=== PATIENT | female | born 1945 | race Caucasian/White ===

== ENCOUNTER 2020-06-17 15:53 | Outpatient (CLI) | payer OTHER, MEDICARE ==
[~2020-06-17] VITALS: Ht 160 cm; Wt 70.5 kg
[2020-06-17] MEDS ORDERED: NS IV 1000 ML 1,000 ML ONE (16:25)
[2020-06-17 16:30] VITALS: BP 118/69
[2020-06-17 16:44] LABS: CLARITY,URINE CLOUDY; COLOR,URINE YELLOW; GLUCOSE, URINE (UA) NEGATIVE (NEGATIVE); KETONES,URINE 1+ (NEGATIVE); LEUKOCYTE ESTERASE ,URINE TRACE (NEGATIVE); NITRITE,URINE NEGATIVE (NEGATIVE); PH,URINE 5.5 (5-9); PROTEIN,URINE 1+ (NEGATIVE)
[2020-06-17] MEDS ORDERED: NS IV 1000 ML 1,000 ML IV ONE (16:45)
[2020-06-17 16:47] LABS: BASOPHILS % (AUTO) 0 % (0-10); EOSINOPHILS # (AUTO) 0.1 10^3/uL (0.0-0.3); EOSINOPHILS % (AUTO) 1 % (0-10); HEMATOCRIT 37 % (35-52); HEMOGLOBIN 12.4 G/DL (11.5-16.0); LYMPHOCYTES # (AUTO) 1.5 X 10^3 (1.0-4.0); LYMPHOCYTES % (AUTO) 24 % (12-44); MEAN CORPUSCULAR HEMOGLOBIN 26 PG (25-34); MEAN CORPUSCULAR HGB CONC 34 G/DL (32-36); MEAN CORPUSCULAR VOLUME 78 FL (80-99); MONOCYTES # (AUTO) 0.8 X 10^3 (0.0-1.0); MONOCYTES % (AUTO) 13 % (0-12); NEUTROPHILS # (AUTO) 3.9 X 10^3 (1.8-7.8); NEUTROPHILS % (AUTO) 62 % (42-75); PLATELET COUNT 363 10^3/uL (130-400); RED CELL DISTRIBUTION WIDTH 14.4 % (10.0-14.5); WHITE BLOOD COUNT 6.3 10^3/uL (4.3-11.0)
[2020-06-17 16:49] LABS: BILIRUBIN,URINE 2+ (NEGATIVE)
[2020-06-17 16:51] LABS: BACTERIA,URINE LARGE /HPF; SQUAMOUS EPITHELIAL CELL,UR 25-50 /HPF
[2020-06-17 17:01] LABS: ALBUMIN 3.8 GM/DL (3.2-4.5); BILIRUBIN,TOTAL 0.3 MG/DL (0.1-1.0); CALCIUM 9.7 MG/DL (8.5-10.1); CREATININE SERUM 1.64 MG/DL (0.60-1.30); POTASSIUM 3.6 MMOL/L (3.6-5.0); TOTAL PROTEIN 7.5 GM/DL (6.4-8.2)
== END 2020-06-17 17:31 | disposition home or self-care (01) ==
LOC: SDC 15:53
PROVIDERS: ATTEND Nurse Practitioner Family
DX: E86.0 Dehydration (principal); R11.2 Nausea with vomiting, unspecified
CPT/HCPCS: 36415; 80053; 81000; 85025; 96365

== ENCOUNTER 2021-05-12 23:20 | Emergency (ER) | payer OTHER, MEDICARE ==
[~2021-05-12] VITALS: Ht 160 cm; Wt 52.0 kg
[2021-05-13 00:06] LABS: BASOPHILS % (AUTO) 1 % (0-10); EOSINOPHILS # (AUTO) 0.1 10^3/uL (0.0-0.3); EOSINOPHILS % (AUTO) 2 % (0-10); HEMATOCRIT 32 % (35-52); HEMOGLOBIN 10.1 g/dL (11.5-16.0); LYMPHOCYTES # (AUTO) 1.1 10^3/uL (1.0-4.0); LYMPHOCYTES % (AUTO) 30 % (12-44); MEAN CORPUSCULAR HEMOGLOBIN 27 pg (25-34); MEAN CORPUSCULAR HGB CONC 32 g/dL (32-36); MEAN CORPUSCULAR VOLUME 84 fL (80-99); MEAN PLATELET VOLUME 11.9 fL (9.0-12.2); MONOCYTES # (AUTO) 0.6 10^3/uL (0.0-1.0); MONOCYTES % (AUTO) 15 % (0-12); NEUTROPHILS # (AUTO) 1.9 10^3/uL (1.8-7.8); NEUTROPHILS % (AUTO) 53 % (42-75); PLATELET COUNT 181 10^3/uL (130-400); WHITE BLOOD COUNT 3.7 10^3/uL (4.3-11.0)
[2021-05-13 00:30] LABS: CREATININE SERUM 1.95 MG/DL (0.60-1.30); POTASSIUM 4.7 MMOL/L (3.6-5.0)
[2021-05-13 00:39] LABS: INR 2.7 (0.8-1.4); PROTHROMBIN TIME PATIENT 29.3 SEC (12.2-14.7)
--- NOTE | 2021-05-13 01:34 | ED Syncope ---
General Chief Complaint: Dizziness/Syncope Stated Complaint: SYNCOPE,WEAKNESS Nursing Triage Note: PT ARRIVES BY [facility] WITH C/O SYNCOPAL EPISODE AT HOME AROUND 2129. PT DOESNT COMPLETELY REMEMBER WHAT HAPPENED BUT HELPED HER TO THE FLOOR. PT WAS AWAKE AND A/OX4 ON ARRIVAL TO [facility]. PT HAS BEEN WEAK LATELY AND HAS SEEN PCP History of Present Illness Date Seen by Provider: May 12, 2021 Time Seen by Provider: 23:45 Initial Comments Patient is a 75-year-old female who presents to the emergency room after a syncopal episode around 930 this evening. Patient states that she was getting a glass out of a kitchen cabinet and realized that she was feeling a little nauseous and lightheaded. Patient states she called for her who came to her assistance and helped her to the floor. Patient states she believes she had a complete syncopal event. She states she also had some pain across her shoulder blades just prior to this event. She denies any actual chest pain or shortness of breath. She was nauseous. She has never had an event like this before. Just prior to this patient had showered after working out on their deck most of the evening. Patient states that she had had dinner. She did not vomit. She has had no recent illnesses. She has had a slight cough. She is not concerned about any Covid exposures. She has seen her primary care physician for weakness ongoing over the course of the last couple of weeks. At the time of presentation the patient's pain across her shoulder blades is completely resolved. She feels back to almost normal but somewhat fatigued. All other review of systems reviewed and negative except as stated above. Timing/Prior Episodes: No Prior History Symptoms Prior to Episode: Diaphoresis Precipitating Factors: Activity Loss of Consciousness: Brief (Seconds) Current Symptoms: Back to Normal Allergies and Home Medications Allergies Coded Allergies: carisoprodol (Verified Allergy, Unknown, 06/17/20) hydrocodone (Verified Allergy, Unknown, 06/17/20) tramadol (Verified Allergy, Unknown, 06/17/20) Patient Home Medication List Home Medication List Reviewed: Yes Review of Systems Constitutional: see HPI, diaphoresis EENTM: no symptoms reported Respiratory: cough Cardiovascular: no symptoms reported Gastrointestinal: nausea Genitourinary: no symptoms reported Musculoskeletal: no symptoms reported Skin: no symptoms reported All Other Systems Reviewed Negative Unless Noted: Yes Past Ekfpbcv-Nnmu[place]-Atgkit Hx Patient Social History Tobacco Use?: No Use of E-Cig and/or Vaping dev: No Use of E-Cig and/or Vaping [place]: Never a User Alcohol Use?: No Pt feels they are or have been: No Immunizations Up To Date Influenza Vaccine Up-to-Date: No; Not Current Physical Exam Vital Signs Vital Signs - First Documented 05/12/21 23:20 Temp 36.1 Pulse 59 Resp 18 B/P (MAP) 126/56 (79) Capillary Refill : Less Than 3 Seconds Height, Weight, BMI Height: '" Weight: lbs. oz. 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 Norm as Tested Cranial Nerves: Normal Hearing, Normal Speech, PERRL Motor/Sensory: No Motor Deficit, No Sensory Deficit Skin: Normal Color, Warm/Dry Progress/Results/Core Measures Results/Orders Lab Results Laboratory Tests Test 05/12/21 23:30 05/13/21 00:00 Range/Units White Blood Count 3.7 L 4.3-11.0 10^3/uL Red Blood Count 3.78 L 3.80-5.11 10^6/uL Hemoglobin 10.1 L 11.5-16.0 g/dL Hematocrit 32 L 35-52 % Mean Corpuscular Volume 84 80-99 fL Mean Corpuscular Hemoglobin 27 25-34 pg Mean Corpuscular Hemoglobin Concent 32 32-36 g/dL Red Cell Distribution Width 14.6 H 10.0-14.5 % Platelet Count 181 130-400 10^3/uL Mean Platelet Volume 11.9 9.0-12.2 fL Immature Granulocyte % (Auto) 0 % Neutrophils (%) (Auto) 53 42-75 % Lymphocytes (%) (Auto) 30 12-44 % Monocytes (%) (Auto) 15 H 0-12 % Eosinophils (%) (Auto) 2 0-10 % Basophils (%) (Auto) 1 0-10 % Neutrophils # (Auto) 1.9 1.8-7.8 10^3/uL Lymphocytes # (Auto) 1.1 1.0-4.0 10^3/uL Monocytes # (Auto) 0.6 0.0-1.0 10^3/uL Eosinophils # (Auto) 0.1 0.0-0.3 10^3/uL Basophils # (Auto) 0.0 0.0-0.1 10^3/uL Immature Granulocyte # (Auto) 0.0 0.0-0.1 10^3/uL Prothrombin Time 29.3 H 12.2-14.7 SEC INR Comment 2.7 H 0.8-1.4 Sodium Level 137 135-145 MMOL/L Potassium Level 4.7 3.6-5.0 MMOL/L Chloride Level 114 H 98-107 MMOL/L Carbon Dioxide Level 15 L 21-32 MMOL/L Anion Gap 8 5-14 MMOL/L Blood Urea Nitrogen 27 H 7-18 MG/DL Creatinine 1.95 H 0.60-1.30 MG/DL Estimat Glomerular Filtration Rate 25 BUN/Creatinine Ratio 14 Glucose Level 105 70-105 MG/DL Calcium Level 7.0 L 8.5-10.1 MG/DL Total Creatine Kinase 59 29-168 U/L Creatine Kinase MB 2.5 <6.6 NG/ML Troponin I < 0.028 <0.028 NG/ML My Orders Orders - LISA TEMPLETON MD Ed Iv/Invasive Line Start (05/12/21 23:49) Cbc With Automated Diff (05/12/21 23:49) Basic Metabolic Panel (05/12/21 23:49) Ekg Tracing (05/12/21 23:49) Protime With Inr (05/12/21 23:49) Chest 1 View, Ap/Pa Only (05/13/21 ) Creatine Kinase (05/13/21 01:40) Creatine Kinase Mb (05/13/21 01:40) Troponin I (05/13/21 01:40) Vital Signs/I&O 05/12/21 23:20 Temp 36.1 Pulse 59 Resp 18 B/P (MAP) 126/56 (79) 7/1/21 23:59 Intake Total 500 ml Balance 500 ml Blood Pressure Mean: 79 Progress Progress Note : Time: 01:42 Progress Note Patient reevaluated, continues to rest without complaints. Labs have been reviewed, she has a slightly decreased white count and hemoglobin at 10. Her white count is 3.7. She has mildly depressed renal function which has been chronic according to previous laboratory studies in June 2020. Patient has follow-up with her primary care physician, Dr. Grider. I will go ahead and send off a CK and troponin this will have been a 4-hour troponin from the event at 930. Pending this is in the normal range we will send the patient home to follow-up with Dr. Grider. Patient is agreeable with this plan. All questions are sought and answered. Initial ECG Impression Date: May 12, 2021 Initial ECG Impression Time: 23:29 Initial ECG Rate: 57 Initial ECG Rhythm: Normal Sinus Initial ECG Intervals: Normal Initial ECG Impression: Normal Departure Impression Primary Impression: Syncope Disposition: 01 HOME, SELF-CARE Condition: Stable Departure-Patient Inst. Decision time for Depature: 02:18 Referrals: JONO GRIDER MD (PCP/Family) Primary Care Physician Patient Instructions: Syncope (Fainting) (DC) Add. Discharge Instructions: Continue your routine home daily medications. Please call and follow-up with your primary care physician. Return to the emergency room for any repeat episodes of passing out, chest or back pain or new concerning or emergent symptoms. Copy Copies To 1: JONO GRIDER MD, KATHRYN M MD May 13, 2021 01:34
[2021-05-13 01:56] LABS: CREATINE KINASE 59 U/L (29-168)
[2021-05-13 02:02] LABS: CREATINE KINASE MB 2.5 NG/ML (<6.6)
[2021-05-13 02:20] VITALS: BP 127/55
--- NOTE | 2021-05-13 07:23 | Diagnostic Imaging Report ---
INDICATION: Syncope COMPARISON: 06/13/2020 TECHNIQUE: Single radiograph chest dated 05/13/2021. FINDINGS: The cardiac silhouette is within normal limits in size. No significant pulmonary vascular congestion. Moderate-sized round gas and fluid collection within the retrocardiac region is again identified. The lungs otherwise appear clear. No significant pleural effusion. No pneumothorax. No acute osseous abnormality. IMPRESSION: No acute cardiopulmonary abnormality with moderate-sized hiatal hernia present. Dictated by: Dictated on workstation # [id number]
== END 2021-05-13 02:20 | disposition home or self-care (01) ==
LOC: EDUNIT# 23:20 → ER 23:22
DX: R55 Syncope and collapse (principal)
CPT/HCPCS: 36415; 71045; 80048; 82550; 82553; 84484; 85025; 85610; 93005

== ENCOUNTER → 2021-07-04 | Outpatient (CLI) | payer MEDICARE, OTHER | LOC: CARD 12:00 | PROVIDERS: ATTEND Nurse Practitioner Family | DX: I08.0 Rheumatic disorders of both mitral and aortic valves (principal); I10 Essential (primary) hypertension | CPT/HCPCS: 93306 ==

== ENCOUNTER 2021-08-25 09:00 | Outpatient (RCR) | payer MEDICARE, OTHER | END 2021-11-11 | disposition home or self-care (01) | LOC: CARD 09:00 | PROVIDERS: ATTEND Internal Medicine Cardiovascular Disease | DX: I49.9 Cardiac arrhythmia, unspecified (principal); R00.2 Palpitations ==

== ENCOUNTER → 2021-09-15 | Outpatient (CLI) | payer MEDICARE, OTHER ==
--- NOTE | 2021-09-15 13:21 | Diagnostic Imaging Report ---
INDICATION: Pain and swelling COMPARISON: None. FINDINGS: 3 views of the right foot demonstrate no acute fracture or dislocation. There are no focal osseous lesions. There is moderate localized soft tissue swelling involving the dorsum overlying the metatarsals. Joint spaces are well maintained. No radiopaque foreign bodies are seen. IMPRESSION: Moderate soft tissue swelling, but no radiographic evidence of acute fracture or dislocation of the right foot. Dictated by: Dictated on workstation # [id number]
== END ==
LOC: RAD 12:45
PROVIDERS: ATTEND Nurse Practitioner Family
DX: M79.671 Pain in right foot (principal); M79.89 Other specified soft tissue disorders
CPT/HCPCS: 73630

== ENCOUNTER → 2022-02-22 | Outpatient (CLI) | payer MEDICARE, OTHER ==
--- NOTE | 2022-02-22 15:39 | Diagnostic Imaging Report ---
PROCEDURE: US Thyroid. TECHNIQUE: Multiple real-time grayscale images were obtained of the thyroid in various projections. INDICATION: Hyperthyroidism. No prior studies are available for comparison. Right lobe of thyroid measures 4.1 x 1.6 x 1.9 cm, left lobe measures 4.4 x 1.2 x 1.5 cm. Isthmus is 3 mm in thickness. There appears to be a tiny cyst in the upper pole right lobe of thyroid approximately 3 to 4 mm in size. Hypoechoic circumscribed solid appearing nodule in the mid right lobe measures approximately 5 mm x 4 mm. Left lobe demonstrates fairly homogeneous echotexture. There is a nodule in the left aspect of the isthmus measuring 9 mm x 9 mm x 5 mm. No microcalcifications are seen. No dominant thyroid mass is detected. IMPRESSION: Bilateral thyroid nodules, subcentimeter in size. No dominant thyroid masses detected. Dictated by: Dictated on workstation # [id number]
== END ==
LOC: RAD 13:00
PROVIDERS: ATTEND Nurse Practitioner Family
DX: E04.2 Nontoxic multinodular goiter (principal); E03.9 Hypothyroidism, unspecified
CPT/HCPCS: 76536

== ENCOUNTER 2022-03-01 05:29 | Outpatient (CLI) | payer MEDICARE, OTHER ==
[~2022-03-01] VITALS: Ht 160 cm; Wt 65.3 kg
[2022-03-01] MEDS ORDERED: FLUT1BLS IH (12:53)
[2022-03-01] MEDS ORDERED: ERGO1250 PO (12:53)
[2022-03-01] MEDS ORDERED: FLUT15.845 NS (12:53)
[2022-03-01] MEDS ORDERED: CLN.1T PO (12:53)
[2022-03-01] MEDS ORDERED: RIVA20TA PO (12:53)
[2022-03-01] MEDS ORDERED: DARI15TA16 PO (12:53)
[2022-03-01] MEDS ORDERED: LOSA100T57 PO (12:53)
[2022-03-01] MEDS ORDERED: ACET-2840 PO (12:53)
[2022-03-01] MEDS ORDERED: ALEN70TA80 PO (12:53)
[2022-03-01] MEDS ORDERED: AMLO-251 PO (12:53)
[2022-03-01] MEDS ORDERED: ESCI5TAB16 PO (12:53)
[2022-03-01] MEDS ORDERED: LATA7.5D OP (12:53)
[2022-03-01] MEDS ORDERED: TIMO5DRO31 OP (12:53)
[2022-03-01] MEDS ORDERED: OMEP40CA6 PO (12:53)
== END 2022-03-01 13:05 | disposition home or self-care (01) ==
LOC: PREOP 05:29
PROVIDERS: ATTEND Surgery
DX: Z01.818 Encounter for other preprocedural examination (principal)

== ENCOUNTER 2022-03-08 09:22 | Day surgery (SDC) | payer MEDICARE, OTHER ==
[~2022-03-08] VITALS: Ht 160 cm; Wt 65.3 kg
[~2022-03-08 09:22] MED LIST: ACET-2840 PO; ALEN70TA80 PO; AMLO-251 PO; CLN.1T PO; DARI15TA16 PO; ERGO1250 PO; ESCI5TAB16 PO; FLUT15.845 NS; FLUT1BLS IH; LATA7.5D OP; LOSA100T57 PO; OMEP40CA6 PO; RIVA20TA PO; TIMO5DRO31 OP
[2022-03-08] MEDS ORDERED: LIDOCAINE JELLY 2% 6 ML SYRINGE MM PRN (09:30)
[2022-03-08] MEDS ORDERED: HURRICAINE EXT TUBE (BENZOCAINE) XX PRN (09:30)
[2022-03-08] MEDS ORDERED: LACTATED RINGERS 1,000 ML IV STA (09:30)
[2022-03-08] MEDS ORDERED: LACTATED RINGERS 1,000 ML IV ONE (09:34)
[2022-03-08 09:40] VITALS: BP 129/57
--- NOTE | 2022-03-08 09:51 | Progress Note-Pre Operative ---
Pre-Operative Progress Note H&P Reviewed The H&P was reviewed, patient examined and no changes noted. Date Seen by Provider: Mar 08, 2022 Time Seen by Provider: :45 Date H&P Reviewed: Mar 08, 2022 Time H&P Reviewed: :45 Pre-Operative Diagnosis: GERD, screening/FH DEBBIE AKHTAR MD Mar 08, 2022 09:51
--- NOTE | 2022-03-08 09:52 | Discharge Inst-Surgical ---
D/C Lap Instructions-GIOVANA Follow Up Activity as tolerated High Fiber Diet 25g or more per day Avoid Alcohol, Caffeine, Spicy Eld[place] and Acid foods. Drink 64 fluid oz or more of fluids per day. Symptoms to Report: Fever over 101 degree F, Nausea/Vomiting If any problems/questions: Contact your physician or go to Emergency Room DEBBIE AKHTAR MD Mar 08, 2022 09:52
[2022-03-08] MEDS ORDERED: ONDANSETRON 4 MG/2 ML (SDV) Z0FRAN IVP PRN (10:00)
[2022-03-08] MEDS ORDERED: ONDANSETRON 4 MG (ZOFRAN) ORAL DISSOLVE TAB PO PRN (10:00)
[2022-03-08] MEDS ORDERED: PROPOFOL INJECTION 50 ML IV ONE (10:51)
[2022-03-08 11:38] VITALS: BP 149/67
[2022-03-08] MEDS ORDERED: ATROPINE INJ 0.4 MG/ML SDV ONE (11:40)
--- NOTE | 2022-03-08 11:49 | Progress Note-Post Operative ---
Post-Operative Progess Note Surgeon (s)/Social Services Manager (s) Surgeon DEBBIE AKHTAR MD Social Services Manager: none Pre-Operative Diagnosis GERD, screening/HP Post-Operative Diagnosis reflux esophagitis(grade B), large HH(5cm), moderate gastritis. mild chronic stage 2 ext and int hemorrhoids. Procedure & Operative Findings Date of Procedure 03/08/22 Procedure Performed/Findings EGD with bx. Colonoscopy. Anesthesia Type mac Estimated Blood Loss Estimated blood loss (mL): minimal Specimens/Packing Specimens Removed ge jxn, antrum DEBBIE AKHTAR MD Mar 08, 2022 11:49
[2022-03-08 12:02] VITALS: BP 119/55
[2022-03-08 12:15] VITALS: BP 119/55
--- NOTE | 2022-03-08 14:29 | Anesthesia-General Post-Op ---
MAC Patient Condition Mental Status/LOC: Same as Preop Cardiovascular: Satisfactory Nausea/Vomiting: Absent Respiratory: Satisfactory Pain: Controlled Complications: Absent Post Op Complications Complications None Follow Up Care/Instructions Patient Instructions None needed. Anesthesiology Discharge Order Discharge Order Patient was doing well after the procedure with no complaints, stable vital signs, no apparent adverse anesthesia problems. GEO SOLOMON DO Mar 08, 2022 14:29
--- NOTE | 2022-03-08 17:52 | OPERATIVE REPORT ---
DATE OF SERVICE: 03/08/2022 ATTENDING PRIMARY CARE PHYSICIAN: Nivia Grider MD PREOPERATIVE DIAGNOSES: Gastroesophageal reflux disease, screening colonoscopy with history of polyp. POSTOPERATIVE DIAGNOSES: Reflux esophagitis, Mcintosh grade B large hiatal hernia approximately 5 cm in size. Moderate gastritis, chronic stage II external and internal hemorrhoids. Remainder of the rectum and colon were normal. PROCEDURE: EGD with biopsy, colonoscopy. SURGEON: Debbie Akhtar MD ANESTHESIA: Monitored anesthesia care. ESTIMATED BLOOD LOSS: Minimal. FINDINGS: Same as postoperative diagnoses. DISPOSITION: The patient tolerated the procedure well. INDICATIONS: The patient is a 76-year-old female with issues with epigastric pain. She did have an EGD in the past and just remembers having a hiatal hernia. She also has had two colonoscopies in the past and was found to have polyps, which were biopsied and found to be benign. She does not report any red blood per rectum nor any dark tarry stools. She states that she has been on omeprazole, which was initially effective; however, has become less effective over time. DESCRIPTION OF PROCEDURE: The patient was brought to the endoscopy suite, laid in left lateral decubitus position. After adequate IV pain and sedative medications and monitored anesthesia care, the mouthpiece was applied. The endoscope was placed in the mouth, visualizing the pharynx and hypopharyngeal region. Vocal cords, epiglottis and vallecula identified and appeared to be normal. The endoscope was then gently intubated the esophageal opening and esophagus insufflated. The endoscope was then advanced through the valves of Reid of the rectum. Through the first, second and third portion of esophagus at the level of the GE junction, a reflux esophagitis, Mcintosh grade B identified. No ulcers or strictures identified. A biopsy was taken with forceps with visualization of good hemostasis. The endoscope was advanced in the stomach and endoscope retroflexed, visualizing a large hiatal hernia approximately 5 cm in size. There was a moderate severity gastritis. No formal ulcerations, polyps, or any neoplasms. A biopsy was taken of the antrum to rule out H. pylori with visualization of good hemostasis. The endoscope was then advanced to the pylorus and the first and second portion of the duodenum, which appeared normal with no distal obstructions. The endoscope was then slowly withdrawn while taking a second look and suctioning of residual air with no additional findings. A digital rectal examination was performed, which revealed chronic stage II external and internal hemorrhoids, not actively edematous nor inflamed and no bleeding. Normal sphincter tone was felt and there were no palpable masses. The endoscope was then intubated and anus and rectum gently insufflated. The endoscope was then advanced to the valves of Reid of the rectum with no polyps or any neoplasms identified. Through the sigmoid colon, no diverticulosis identified. The endoscope was then advanced to the remainder of the descending, transverse and ascending colon to the cecum, which were normal. There were no polyps or any neoplasms identified throughout the colon or rectum. Endoscope was then slowly withdrawn while taking a second look and suctioning of residual air with no additional findings. The patient tolerated the procedure well. For her large hiatal hernia and gastroesophageal reflux disease. We will recommend the necessary lifestyle and dietary accommodation including small and more frequent meals, avoiding to eating at night as well as head elevation while lying supine. She also needs to avoid caffeinated beverages, spicy, greasy and acidic foods. We will also start her on Protonix 40 mg daily. If she were to proceed with all the necessary lifestyle and dietary accommodations as well as medication and continued to have symptoms, she may be a candidate for hiatal hernia repair; however, she would need proper clearances before proceeding with this type of surgery. We will also recommend a high-fiber diet with a fiber supplement, which should equal or exceed 25 grams daily as well as significant amounts of water to promote soft stools on a daily basis. It does not appear that she has any family history of colon cancer and if she does not have any issues, then she does not need another colonoscopy for another 10 years. Job ID: [id number] DocumentID: [id number] Dictated Date: 03/08/2022 11:39:41 Customer Engagement Analyst Date: 03/08/2022 17:51:56 Dictated By: DEBBIE AKHTAR MD
== END 2022-03-08 12:15 | disposition home or self-care (01) ==
LOC: ENDO 09:22
PROVIDERS: ATTEND Surgery
DX: Z12.11 Encounter for screening for malignant neoplasm of colon (principal); K21.00 Gastro-esophageal reflux disease with esophagitis, without bleeding; K44.9 Diaphragmatic hernia without obstruction or gangrene; K29.50 Unspecified chronic gastritis without bleeding; K64.1 Second degree hemorrhoids; K64.4 Residual hemorrhoidal skin tags; Z86.010 Personal history of colon polyps; Z87.891 Personal history of nicotine dependence
CPT/HCPCS: 43239; G0105

== ENCOUNTER → 2022-03-14 | Outpatient (CLI) | payer MEDICARE, OTHER ==
--- NOTE | 2022-03-15 12:56 | Diagnostic Imaging Report ---
INDICATION: Hyperthyroidism and abnormal thyroid labs. TECHNIQUE: The patient was administered 201 uCi of I-123 orally and 4 hour and 24-hour thyroid uptake was performed. In addition, a thyroid scan was performed. FINDINGS: The 4 hour uptake is measured at 6.6%. The 24-hour thyroid uptake is 21.4%. Normal 24 hour thyroid uptake values are 10-30%. The thyroid scan shows fairly homogeneous uptake of activity throughout both lobes of the thyroid gland. No definite hot or cold nodule is seen. IMPRESSION: Normal thyroid uptake and scan. Dictated by: Dictated on workstation # [id number]
== END ==
LOC: CARD 11:00
PROVIDERS: ATTEND Nurse Practitioner Family
DX: E05.90 Thyrotoxicosis, unspecified without thyrotoxic crisis or storm (principal)
CPT/HCPCS: 78014; A9516

== ENCOUNTER → 2022-06-27 | Outpatient (CLI) | payer MEDICARE, OTHER ==
--- NOTE | 2022-06-27 17:09 | Diagnostic Imaging Report ---
INDICATION: Postmenopausal screening history of fracture COMPARISON: Baseline FINDINGS: AP Spine L1-L4: [BMD (g/cm2): NA] [T-Score: NA] [Z-Score: NA] [BMD Previous: NA] [BMD % Change: NA] LT Hip Neck: [BMD (g/cm2): 0.678] [T-Score: -2.6] [Z-Score: -0.5] LT Hip Total: [BMD (g/cm2):0.662] [T-Score:-2.7] [Z-Score: -0.8] [BMD Previous: NA] [BMD % Change: NA] RT Hip Neck: [BMD (g/cm2):NA] [T-Score:NA] [Z-Score:NA] RT Hip Total: [BMD (g/cm2):NA] [T-score:NA] [Z-Score:NA] [BMD Previous:NA] [BMD % Change:NA] *Indicates significant change from prior examination based on 95% confidence level. World Health Organization criteria for BMD interpretation classify patients as Normal (T-score at or above -1.0), Osteopenic (T-score between -1.0 and -2.5) or Osteoporotic (T-score at or below -2.5). LIMITATIONS AND MODIFICATION: None. FRACTURE RISK (FRAX SCORE): The ten year probability of (%): Major Osteoporotic Fracture: [20.3] Hip Fracture: [7.3] IMPRESSION: 1. Osteoporosis. 2. Baseline examination. 3. See below National Osteoporosis Foundation guidelines on when to potentially initiate pharmacologic therapy. Based on the National Osteoporosis Foundation Guidelines, pharmacologic treatment should be initiated in any of the following, unless clinical conditions suggest otherwise: * Any patient with prior fragility fracture of the hip or vertebrae. A spine fracture indicates 5X risk for subsequent spine fracture and 2X risk for subsequent hip fracture. * Osteoporosis (T-score <-2.5). * Postmenopausal women and men age 50 and older with low bone mass/osteopenia (T-score between -1.0 and -2.5) by DXA and 10-year major osteoporotic fracture greater than 20% or a 10-year probability of hip fracture greater than 3%. These fracture risks are supplied above in the FRAX score, if applicable. * Clinician judgement and/or patient preferences may indicate treatment for people with 10-year fracture probabilities above or below these levels. Dictated by: Dictated on workstation # [id number]
== END ==
LOC: RAD 14:34
PROVIDERS: ATTEND Family Medicine
DX: M81.0 Age-related osteoporosis without current pathological fracture (principal); E05.10 Thyrotoxicosis with toxic single thyroid nodule without thyrotoxic crisis or storm; Z78.0 Asymptomatic menopausal state
CPT/HCPCS: 77080

== ENCOUNTER → 2022-08-02 | Outpatient (CLI) | payer MEDICARE, OTHER ==
[~2022-08-02] MED LIST changes: +CATHETER FLUSH 10 ML SYR IVP PRN; +REGADENOSON 0.4 MG/5 ML SYR (LEXISCAN) IV ONE
[2022-08-02 12:53] VITALS: BP 198/89
--- NOTE | 2022-08-02 15:26 | Cardiology Stress Test Report ---
Stress Test Report Date of Procedure/Referring: Date of Procedure: Aug 02, 2022 PCP Jono Grider MD Admitting Physician Admitting Physician: Attending Physician: Clari Moreno Indications: Syncope Baseline Heart Rate: 65 Baseline Blood Pressure: Blood Pressure Systolic: 198 Blood Pressure Diastolic: 89 Baseline Vitals Vital Signs Date Time Temp Pulse Resp B/P (MAP) Pulse Ox O2 Delivery O2 Flow Rate FiO2 08/02/22 12:53 83 19 198/89 (125) 99 Room Air Baseline EKG: Baseline EKG: NSR Summary After explaining the procedure to the patient, she signed a consent and then brought to the stress nuclear laboratory. Patient received 0.4 mg Lexiscan for stress test, ECG, heart rate and blood pressure were monitored continuously. Resting and stress dose of radio tracer were injected, imaging was acquired and reviewed in short axis, horizontal long axis and vertical long axis views. TID: 0.91 SSS: 4 SDS: 4 EF: 77 1. Patient tolerated Lexiscan well 2. Breast attenuation with typical female pattern, no significant ischemia or infarction on SPECT images 3. Normal left ventricular size, ejection fraction 77% Copy Copies To 1: JONO GRIDER MD, BASHAR J MD Aug 02, 2022 15:26
== END ==
LOC: CARD 12:00
PROVIDERS: ATTEND Physician Assistant
DX: R55 Syncope and collapse (principal)
CPT/HCPCS: 78452; 93017; A9502